=== PATIENT | female | born 1970 | race Caucasian/White ===

== ENCOUNTER 2021-02-07 17:56 | Emergency (ER) | payer SELFPAY ==
--- NOTE | 2021-02-07 18:00 | ERPHSYRPT ---
- History of Present Illness Time Seen by Provider: 02/07/21 18:00 Source: patient Exam Limitations: no limitations Physician History: This is a 50-year-old right-handed white female whose tetanus status is up-to-date and suffered a superficial dog bite to the dorsal aspect of her right hand prior to arrival to the emergency department. The patient states that she was trying to break up an altercation between the family's dog, whose immunization status is up-to-date, and her son. Timing/Duration: today Quality: painful Severity: mild, moderate (With palpation) Location: hands (Dorsal aspect right hand) Possible Causes: other (Dog bite) Associated Symptoms: denies symptoms Allergies/Adverse Reactions: fentanyl Allergy (Verified 03/28/16 09:32) methadone Allergy (Verified 03/28/16 09:32) oxaprozin [From Daypro] Allergy (Verified 03/28/16 09:32) oxycodone Allergy (Verified 03/28/16 09:32) Sulfa (Sulfonamide Antibiotics) Allergy (Verified 03/28/16 09:32) Home Medications: ALPRAZolam [Xanax 0.5 mg] 0.5 mg PO TID 02/22/16 [History] Albuterol Sulfate [Proair Hfa] 8.5 gm IH .PRN 02/22/16 [History] Alendronate Sodium 70 mg [Fosamax 70 MG] 70 mg PO Q7D@0600 02/22/16 [History] Chlorpheniramine Maleate [Allergy] 4 mg PO TID 02/22/16 [History] Cyanocobalamin 100 Mcg [Vitamin B-12 100 Mcg] 0 mcg PO .UNKNOWN 02/22/16 [History] Folic Acid 0 mg PO .UNKNOWN 02/22/16 [History] Levothyroxine Sodium 88 Mcg [Synthroid 88 Mcg] 88 mcg PO DAILY 02/22/16 [History] Omeprazole 40 mg PO DAILY 02/22/16 [History] Ondansetron HCl [Zofran] 4 mg PO Q6HPRN PRN 02/22/16 [History] Pravastatin Sodium [Pravachol] 0 mg PO HS 02/22/16 [History] Tizanidine HCl [Zanaflex] 2 mg PO BID 02/22/16 [History] Hydrocodone/APAP 10/325 mg [Brewster 10/325 MG Tablet] 1 tab PO Q6H PRN PRN 03/28/16 [History] Citalopram Hydrobromide [Celexa] 10 mg PO DAILY 09/30/16 [History] Travel Risk - International Travel Have you traveled outside of the country in past 3 weeks: No - Coronavirus Screening Are you exhibiting any of the following symptoms?: No Close contact with a COVID-19 positive Pt in past 14-21 Days: No - Review of Systems Constitutional: No Symptoms Eyes: No Symptoms Ears, Nose, & Throat: No Symptoms Respiratory: No Symptoms Cardiac: No Symptoms Abdominal/Gastrointestinal: No Symptoms Genitourinary Symptoms: No Symptoms Musculoskeletal: No Symptoms Skin: Other (Dog bite, skin tear dorsal aspect right hand) Neurological: No Symptoms Psychological: No Symptoms Endocrine: No Symptoms Hematologic/Lymphatic: No Symptoms Immunological/Allergic: No Symptoms All Other Systems: Reviewed and Negative - Past Medical History Pertinent Past Medical History: Yes - Past Surgical History Past Surgical History: Yes - Nursing Vital Signs Nursing Vital Signs: Initial Vital Signs Temperature 97.5 F 02/07/21 18:02 Pulse Rate 95 H 02/07/21 18:02 Respiratory Rate 20 02/07/21 18:02 Blood Pressure 179/83 02/07/21 18:02 O2 Sat by Pulse Oximetry 95 02/07/21 18:02 Pain Scale Pain Intensity 2 - Physical Exam General Appearance: no apparent distress, alert, anxiety Eye Exam: PERRL/EOMI, eyes nml inspection Ears, Nose, Throat Exam: normal ENT inspection, moist mucous membranes Neck Exam: normal inspection, non-tender, supple, full range of motion Respiratory Exam: airway intact, No chest tenderness, No respiratory distress Cardiovascular Exam: regular rate/rhythm, normal heart sounds, normal peripheral pulses Gastrointestinal/Abdomen Exam: No tenderness Pelvic Exam: not done Rectal Exam: not done Back Exam: normal inspection, normal range of motion, No CVA tenderness, No vertebral tenderness Extremity Exam: normal range of motion, pelvis stable, other (Tenderness with "skin tear" V-shaped, dorsal aspect right hand.) Neurologic Exam: other (Patient's right hand and all fingers are neurovascularly intact) Skin Exam: other (Skin tear "V-shaped" dorsal aspect right hand) Lymphatic Exam: No adenopathy SpO2 Interpretation: normal O2 Delivery: Room Air Procedures - Laceration/Wound Repair Right Dorsal Hand Time of Procedure: 18:20 Wound Location: Right, hand (Dorsal aspect) Wound Length (cm): 4 Wound's Depth, Shape: superficial (4 cm) Wound Explored: to base Wound Repaired With: Steri-strips (And benzoin) Progress: 02/07/21 18:32 Procedure note: The wound was clean. The area was then prepped with benzoin topically. 1/2 inch Steri-Strips were applied. A nonadherent pad/gauze was placed overlying the repair site followed by 4 x 4 gauze and Kerlix wrap to provide a pressure dressing. There were no complications patient told procedure well. Ordered Tests: Active Orders 24 hr Category Date Time Status Wound Care STAT Care 02/07/21 18:25 Active - Progress Progress: improved, pain not gone completely Counseled pt/family regarding: diagnosis, need for follow-up - Departure Departure Disposition: Home Clinical Impression: Laceration of right hand, Dog bite of hand Condition: Stable Critical Care Time: No Additional Instructions: Keep current dressing in place until the evening of 02/08/2021. At 9 PM on 02/08/2021, may remove all dressings except leave the Steri-Strips in place until they fall off on their own. After you wash your hands, blot the Steri- Strips site with a dry towel or use a hydraulic chair assembler to dry that site. Again, leave the Steri-Strips in place till they fall off on their own. Take your antibiotics as prescribed with food. Follow-up with your primary care physician for further management. Prescriptions: Amoxicillin/Potassium Clav [Augmentin 500-125 Tablet] 1 each PO TID 5 Days #15 tablet
[2021-02-07 18:32] VITALS: BP 168/82; PULSE 88; O2SAT 98
== END 2021-02-07 18:46 | disposition home or self-care (01) ==
LOC: ED 17:56
DX: S61.451A Open bite of right hand, initial encounter (principal); W54.0XXA Bitten by dog, initial encounter; Y93.9 Activity, unspecified; Y92.9 Unspecified place or not applicable
CPT/HCPCS: 99283

== ENCOUNTER 2021-07-18 10:07 | Day surgery (SDC) | payer SELFPAY ==
--- NOTE | 2021-07-16 14:42 | HP ---
DATE OF SURGERY: 07/18/2021 ADMISSION DIAGNOSIS: Epigastric pain, previous history of gastroesophageal reflux disease. HISTORY OF PRESENT ILLNESS: Epigastric pain, previous history of gastroesophageal reflux disease. The patient is on omeprazole. She does have history of diarrhea. She has a history of dysphagia, lots of nausea and also history of polyps. She presents for EGD and colonoscopy. PAST MEDICAL HISTORY: ALLERGIES: SULFA. FENTANYL. METHADONE. OXAPROZIN. OXYCODONE. MEDICATIONS: Per the chart. PAST SURGICAL HISTORY: Tonsillectomy. section. Cholecystectomy. Laparoscopy for endometriosis. SOCIAL HISTORY: Positive tobacco. Negative ETOH. FAMILY HISTORY: Negative. PHYSICAL EXAMINATION: VITAL SIGNS: Normal. CHEST: Clear. COR: Regular. ABDOMEN: No palpable organomegaly or mass. IMPRESSION: Dysphagia, epigastric pain, reflux, history of polyps, diarrhea. PLAN: EGD and colonoscopy.
[2021-07-18] MEDS ORDERED: Lactated Ringers 1,000 ML IV SCH (11:00)
[2021-07-18] MEDS ORDERED: Lactated Ringers 1,000 ML IV ONE (11:26)
[2021-07-18] MEDS ORDERED: DIPRIVAN 200 MG/20 ML IV ONE ×2 (12:03→12:30)
[2021-07-18] MEDS ORDERED: Xylocaine-Mpf 2% 5 Ml Vial ONE (12:03)
[2021-07-18] MEDS ORDERED: GlucaGen 1 MG ONE ×2 (12:29)
--- NOTE | 2021-07-18 13:27 | OP ---
SURGERY DATE/TIME: 07/18/2021 1200 PREOPERATIVE DIAGNOSIS: Epigastric pain, history of reflux. POSTOPERATIVE DIAGNOSES: 1) Grade 2/4 gastroesophageal reflux disease. 2) A 1.5 inch hiatal hernia. 3) History of polyps. 4) Normal colonoscopy except for spasm of the sigmoid. PROCEDURES: 1) EGD. 2) Colonoscopy complete to cecum. SURGEON: Duc Castro M.D. UNLOADER: Umberto Slater, medical student IV. ANESTHESIA: MAC. COMPLICATIONS: None. CONDITION: Stable. INDICATION: A patient requiring evaluation. DESCRIPTION OF PROCEDURE: Taken to endoscopy. MAC sedation provided. Scope introduced. Pharyngoesophageal junction normal. Esophagus normal down to gastroesophageal junction. A 1.5 inch hiatal hernia, grade 2/4 gastroesophageal reflux disease. The patient is quite irritable. She looked quite irritable. I think she was inhaling a lot of smoke down her GI tract. Fundus, body and antrum, pylorus, duodenal bulb, second portion of duodenum. The scope withdrawn and looped back on itself. A 1.5 hiatal hernia fairly slender. Scope withdrawn. IMPRESSION: Grade 2/4 gastroesophageal reflux disease and a 1.5 inch hiatal hernia. Anal digital examination. She was actually spasming but it settled. The scope introduced. She had a lot of spasm in the sigmoid. Some Glucagon was given. The scope advanced to the cecum. Base of the cecum, ileocecal valve, appendiceal orifice normal. Ascending, hepatic, transverse, splenic, descending, sigmoid, anus much better on the way out and was normal. PLAN: Five year rescope.
[2021-07-18 13:28] VITALS: BP 149/100; PULSE 84; O2SAT 97
[2021-07-18 15:48] LABS: 027 TOX PROD PRESUMPTIVE NEGATIVE (NEGATIVE)
[2021-07-18 15:54] LABS: TOXIGENIC C. DIFF ORG POSITIVE (NEGATIVE)
== END 2021-07-18 13:35 | disposition home or self-care (01) ==
LOC: SDC 10:07
PROVIDERS: ATTEND Surgery
DX: K21.9 Gastro-esophageal reflux disease without esophagitis (principal); Z09 Encounter for follow-up examination after completed treatment for conditions other than malignant neoplasm; Z86.010 Personal history of colon polyps; R10.13 Epigastric pain; K44.9 Diaphragmatic hernia without obstruction or gangrene; K58.8 Other irritable bowel syndrome
CPT/HCPCS: 84703; 87045; 87046; 87328; 87329; 87493; 93005; J1610; J2704